=== PATIENT | male | born 1965 | race Two or more races ===

== ENCOUNTER 2022-12-02 17:12 | Emergency (ER) | payer SELFPAY ==
[~2022-12-02] VITALS: Ht 180.3 cm; Wt 92.0 kg
[2022-12-02] MEDS ORDERED: KETOROLAC TROMETH 60MG/2ML VIAL IM ONE (19:15)
[2022-12-02] MEDS ORDERED: NAP500T PO (19:17)
[2022-12-02 19:45] VITALS: BP 150/98
== END 2022-12-02 19:47 | disposition home or self-care (01) ==
LOC: ER 17:12
DX: M72.2 Plantar fascial fibromatosis (principal); I10 Essential (primary) hypertension; Z88.8 Allergy status to other drugs, medicaments and biological substances; Z98.890 Other specified postprocedural states
CPT/HCPCS: 73630; 96372; 99283; J1885

== ENCOUNTER 2023-07-25 18:13 | Emergency (ER) | payer BC ==
[~2023-07-25] VITALS: Ht 180.3 cm; Wt 95.0 kg
[~2023-07-25 18:13] MED LIST: NAP500T PO
[2023-07-25 19:24] LABS: Rapid Influenza A Negative (Negative); Rapid Influenza B Negative (Negative)
[2023-07-25 19:25] LABS: COVID19 ANTIGEN SOFIA FIA NEGATIVE (NEGATIVE)
[2023-07-25] MEDS ORDERED: PRED20TA2 PO (20:15)
[2023-07-25] MEDS ORDERED: BENZ200C64 PO (20:15)
[2023-07-25] MEDS ORDERED: AZITTAB PO (20:15)
[2023-07-25] MEDS ORDERED: ALBUAER3 IN (20:15)
[2023-07-25 20:21] VITALS: BP 140/95; PULSE 87; RESP 18; TEMP 97.6; O2SAT 97
== END 2023-07-25 20:22 | disposition home or self-care (01) ==
LOC: ER 18:13
DX: J20.9 Acute bronchitis, unspecified (principal); I10 Essential (primary) hypertension; Z98.890 Other specified postprocedural states; Z20.822 Contact with and (suspected) exposure to COVID-19
CPT/HCPCS: 36415; 71045; 87426; 87804